=== PATIENT | female | born 1975 | race Caucasian/White ===

== ENCOUNTER 2024-01-21 19:13 | Emergency (ER) | payer OTHER, SELFPAY ==
--- NOTE | ~2024-01-21 | CT_ITS ---
CLINICAL INDICATION: Epigastric and suprapubic abdominal pain. COMPARISON: 01/05/2006. TECHNIQUE: An enhanced CT of the abdomen and pelvis was performed utilizing multislice spiral ThinkUp ue reconstructed at 5 mm slice thickness. Coronal and sagittal reconstructions were performed. This CT examination was performed utilizing dose reduction techniques. DLP: 661.5 mGy-cm FINDINGS/OBSERVATIONS: Visualized lower thorax:The bilateral lung bases are clear. The heart is of normal size, without pericardial effusion. Small hiatal hernia is present. Liver: The liver is not enlarged measuring 17 cm in longitudinal dimension. The liver enhances homoge neously. Gallbladder and biliary system: The gallbladder is only minimally distended, without calcified stones . Pancreas: The pancreas enhances homogeneously. Spleen: The spleen is not enlarged, and enhances homogeneously Kidneys: The bilateral kidneys enhance symmetrically without hydronephrosis or renal calculi. Adrenal glands: Unremarkable Gastrointestinal tract: Trace mural edema within the transverse colon without surrounding inflammator y change. Appendix:The air-filled appendix is of normal caliber (series 3, image 114). Vasculature: Unremarkable Lymph nodes: Scattered nonpathologically enlarged lymph nodes within the retroperitoneum and mesenter y. Pelvic structures:Uterus is markedly enlarged and heterogeneous. Within the anterior body of the uter us, to the left of midline is a mostly well-circumscribed area of mixed attenuation markedly distorti ng the endometrial canal. This abnormality measures 8.7 x 7.5 x 7.5 cm, nearly encompassing the entir ety of the body of the uterus. The bladder is distended, although receives mass effect from the enlarged uterus, but is otherwise un remarkable. Body wall and musculoskeletal: Small fat-containing umbilical hernia. Trace degenerative disease within the lumbosacral spine, at the level L5/S1 with osteophyte formation , disc space narrowing, endplate changes and vacuum phenomena. IMPRESSION: Markedly abnormal findings within the uterus (as detailed above) which may represent fibroid disease, for which ultrasound may be performed for better characterization. Reviewed, dictated and finalized at location A. IMPRESSION: Markedly abnormal findings within the uterus (as detailed above) which may repr esent fibroid disease, for which ultrasound may be performed for better charact erization.
[2024-01-21 19:28] VITALS: BP 155/100; PULSE 105; RESP 16; TEMP 36.7; O2SAT 100
--- NOTE | 2024-01-21 19:47 | ED.ABDPAIN ---
HPI - Abdominal Pain General Chief Complaint: Abdominal Pain Stated Complaint: abd pain, diarrhea Time Seen by Provider: 01/21/24 19:39 Source: patient Mode of arrival: ambulatory Limitations: no limitations History of Present Illness HPI narrative: This is a 48-year-old female, with history of narcolepsy and anxiety, who presents emergency department complaining of diarrhea for the past 5 days associated with abdominal pain. The patient denies any known sick contacts or recent travel. She denies eating any foul tasting foods or uncooked meals. She complains of cramping, 7/10 suprapubic and epigastric abdominal pain. Today, 1 episode of loose stools appeared dark and tarry. She denies bleeding elsewhere. She has no other complaints at this time. Related Data Allergies Allergy/AdvReac Type Severity Reaction Status Date / Time No Known Allergies Allergy Verified 01/21/24 19:15 Review of Systems Review of Systems: All systems reviewed & are unremarkable except as noted in HPI and below PMFSH Past Medical History Medical History Anxiety Surgical History Surgical History No significant past surgical history Social History Social History Smoking status: Current every day smoker Alcohol intake: current Drinks per week: 2 Substance use: never Exam Narrative: GENERAL: Well-developed, well-nourished, and in no acute distress. HEAD: Normocephalic, atraumatic. EYES: PERRLA and EOMI. no conjunctival pallor ENT: Nares clear, no rhinorrhea or epistaxis. Mucous membranes moist. Oropharynx without tonsillar hypertrophy exudate or other lesions. CHEST: Clear to auscultation. No respiratory distress. No wheezes rales or rhonchi HEART: Regular rate and rhythm. No murmur heard. Normal peripheral pulses. ABDOMEN: Soft, tender to palpation in the epigastrium and suprapubic region, without rebound or guarding, nondistended, normal active bowel sounds. no CVA tenderness EXTREMITIES: Normal range of motion. No edema. SKIN: Warm, dry, no rash. NEURO: Alert and oriented x3. No focal deficit. Moving all 4 limbs spontaneously PSYCH: Normal mood and affect. Course Course Emergency Course: 21:30 - CBC demonstrates mildly elevated white blood cell count of 12.4 and hemoglobin of 10.2 with unknown baseline. There are changes consistent with microcytic anemia. Chemistries unremarkable. UA unremarkable CT abdomen pelvis obtained. There is a large mass noted in the uterus. Radiology interpretation pending. 21:50 - CT abdomen pelvis demonstrates an 8.7 x 7.5 x 7.5 cm uterine fibroid, though is not concerning for any other acute organ injury, active bleeding or changes concerning for infection. The patient notes she has had an ultrasound approximately 1 year ago with her primary care doctor. She provides information on my chart showing an 8.4 x 5 x 7.5 cm fibroid. CBC 1 year ago demonstrated hemoglobin of 11.9. I suspect the patient's anemia is related to bleeding with the fibroid. The patient's heart rate has improved to the 80s with IV fluids. I suspect her symptoms are related to enteritis. Will discharge with recommendation for primary care and Gynecology follow-up. Will provide antiemetics and loperamide for symptomatic control. I discussed the findings and recommendations with the patient. Discussed return and emergency precautions including signs/symptoms of acute abdomen, bowel obstruction and intractable vomiting. The patient voiced understanding and agreement with the plan. All questions answered to her satisfaction. Vital Signs Vital signs: Vital Signs Temperature 98.1 F 01/21/24 19:28 Pulse Rate 105 H 01/21/24 19:28 Respiratory Rate 16 01/21/24 19:28 Blood Pressure 155/100 H 01/21/24 19:28 Pulse Oximetry 100 01/21/24 19:28 Oxygen
[2024-01-21] MEDS: ONDANSETRON INJ 4 MG/2 ML VIAL IV PUSH (20:01)
[2024-01-21] MEDS: SODIUM CHLORIDE 0.9% IV 1,000 ML 999 ML IV CONT (20:01)
[2024-01-21] MEDS: MORPHINE SULFATE (*CRX) 4 MG/ML INJ IV PUSH (20:01)
[2024-01-21 20:12] LABS: Basophils Absolute Auto 0.1 K/mm3 (0.0-0.1); Basophils Percent Auto 0.5 % (0.2-1.2); Eosinophils Absolute Auto 0.8 K/mm3 (0-0.3); Eosinophils Percent Auto 6.8 % (0-4.4); Hematocrit 33.5 % (37.0-47.0); Hemoglobin 10.2 g/dL (12.0-15.0); Immature Granulocyte Absolute 0.05 K/mm3 (0.00-0.031); Immature Granulocyte Percent A 0.4 % (0-0.5); Lymphocytes Absolute Auto 3.09 K/mm3 (0.9-3.2); Lymphocytes Percent Auto 24.9 % (18.3-44.2); Mean Corpuscular HGB Conc 30.4 g/dl (32-36); Mean Corpuscular Hemoglobin 22.9 pg (26-34); Mean Corpuscular Volume 75.1 fl (80-100); Mean Platelet Volume 9.7 fl (7.4-10.4); Monocytes Absolute Auto 1.1 K/mm3 (0.1-0.6); Monocytes Percent Auto 8.8 % (2.6-8.5); Neutrophils Absolute Auto 7.3 K/mm3 (1.3-6.7); Neutrophils Percent Auto 58.6 % (45.5-73.1); Platelet Count Result 593 k/mm3 (150-375); Red Blood Count 4.46 M/mm3 (4.2-5.4); Red Cell Distribution Width 18.6 % (11.5-14.5); White Blood Count 12.4 K/mm3 (4.5-10.0)
[2024-01-21 20:13] LABS: Add Urine Microscopic? NO; Appearance Urine Clear (Clear); Bilirubin Urine Negative (Negative); Blood Urine Negative (Negative); Color Urine Yellow (Yellow); Glucose Urine UA Negative (Negative); Ketones Urine Negative (Negative); Leukocyte Esterase Ur Negative LEU/UL (Negative); Nitrate Urine Negative (Negative); Protein Urine Negative (Negative); Specific Grav Ur 1.004 (1.001-1.035); Urobilinogen Urine 0.2 mg/dL (<2.0); pH Urine 6.5 (5.0-9.0)
[2024-01-21 20:21] LABS: Alanine Aminotransferase 29 U/L (6-35); Albumin Level 4.3 g/dL (3.5-5.1); Alkaline Phosphatase 103 U/L (38-126); Anion Gap 7 mmol/L (4-12); Aspartate Amino Transferase 31 U/L (14-36); Bilirubin,Total 0.2 mg/dL (0.2-1.3); Blood Urea Nitrogen 10 mg/dL (7-17); Calcium 8.7 mg/dL (8.4-10.2); Carbon Dioxide 27 mmol/L (22-30); Chloride 103 mmol/L (98-107); Estimated CRCL calculation 100 ml/min; Estimated Glomerular Filt Rate > 60; Glucose 105 mg/dL (65-110); Lipase 252 U/L (23-300); Potassium 3.7 mmol/L (3.4-5.0); Sodium 137 mmol/L (137-145)
[2024-01-21 20:23] LABS: INR 0.9; Partial Thromboplastin Time 26.2 Seconds (22.3-36.8)
[2024-01-21 20:29] LABS: BEDSIDEPREGUCG Negative (Negative)
[2024-01-21 22:20] VITALS: BP 115/80; PULSE 79; RESP 20; O2SAT 96
== END 2024-01-21 22:20 | disposition home or self-care (01) ==
PROVIDERS: Emergency Provider Preventive Medicine Aerospace Medicine
DX: R19.7 Diarrhea, unspecified (principal); D25.9 Leiomyoma of uterus, unspecified; R10.30 Lower abdominal pain, unspecified; F17.200 Nicotine dependence, unspecified, uncomplicated
CPT/HCPCS: 36415; 74177; 80053; 81003; 81025; 83690; 85025; 85610; 85730; 96361; 96374; 96375; 99284; J2270; J2405; J7030; Q9967

== ENCOUNTER 2024-02-29 00:30 | Day surgery (SDC) | payer OTHER, SELFPAY ==
--- NOTE | 2024-02-19 10:59 | SUR.PREOP ---
Report to the Outpatient Waiting Room, entrance under the green pavilion located off [facility], at time _0615_ on date _02/29/24_. Planned Procedure Time: _0815_.? Time changes happen often and if your time is changed the preop area will call you the afternoon before. - You and your visitor will be asked to self-screen and do not enter if you have any COVID symptoms. Please call surgeon if you need to reschedule. - A mask is optional within the hospital at this time. Patients may have clear liquids (water, carbonated beverages, clear teas, apple juice) until 3 hours (0515) prior to surgery with a maximum of 20 ounces. - No food from midnight until time of surgery and no smoking - Infants may have breast milk until 4 hours before surgery, formula 6 hours prior to surgery. - Children will be allowed to drink immediately following surgery.? If applicable, please bring a bottle or sippy cup to assist with drinking. Juice, water, soda, and popsicles are readily available.? For infants on formula, please bring formula the day of surgery.? Pacifiers are allowed. Take only the following medications with a SIP of water on the morning of surgery: _NA_ DO NOT STOP ANY OF YOUR OTHER PRESCRIPTION MEDICATIONS PRIOR TO SURGERY EXCEPT THE FOLLOWING Medications to discontinue per physician _Vitamin_ Date to take last dose_02/26/2024_ Please no make-up, nail maltese, hairspray, perfume, deodorant, or body powder the day of surgery.? No jewelry (including any body piercings) or valuables the day of surgery, leave them at home.? Please take a shower or bath the night before, or the morning of, surgery with an antibacterial soap.? Wear comfortable, loose fitting clothing.? Children are encouraged to wear pajamas. - Jewelry must be removed prior to entering the operating room.? Rings and piercings that are not removed may be cut off. - The hospital will not accept responsibility for valuables.? - Please leave all valuables, including medications, at home the day of surgery. If you are going home after surgery, a licensed driver utility worker must drive you home.? - NO public transportation without another adult if you receive anesthesia. - We recommend that an adult stay with you for 24 hours following discharge. - We also recommend that you do not drive, make important decision, drink alcoholic beverages, or take any drugs that were not prescribed by your health care provider for at least 24 hours after your discharge time. For Pediatric surgeries, we recommend two adults accompany the child home. Follow any additional instructions given to you from your surgeon. Telephone instructions given to _Keli_and asked if any additional questions and then verbalized understanding. Patient advised to call surgeon office or pre surgery nurse liaison [phone] if any additional questions.
[2024-02-19 11:20] VITALS: BMI 29.1
[2024-02-29 06:25] VITALS: BP 113/57; PULSE 91; RESP 18; TEMP 36.4; O2SAT 98
[2024-02-29] MEDS: ACETAMINOPHEN 500 MG TABLET 1000 MG PO (06:45)
[2024-02-29] MEDS: LACTATED RINGERS 1,000 ML 30 ML IV CONT (06:50)
--- NOTE | 2024-02-29 06:54 | P.PNAN_ITS ---
Anes - Initial Pre Proc Eval Procedure: Operation Date: 02/29/24 08:15 Proposed Procedures p Hysteroscopy Dilation and Curettage - Ewa Andrew MD Date/Time: 02/29/24 06:54 Surgeon: Ewa Andrew MD Pre Op Diagnosis: Menorrhagia Patient Data Age: 48 Gender: F Height: 1.65 m Weight: 79.38 kg Allergies Allergy/AdvReac Type Severity Reaction Status Date / Time No Known Allergies Allergy Verified 02/19/24 11:11 Home Medications Medication Instructions Recorded Confirmed Type armodafinil 150 mg tablet 150 mg PO PRN 02/19/24 02/19/24 History cetirizine 10 mg tablet 10 mg PO DAILY 02/19/24 02/19/24 History omeprazole 40 mg capsule,delayed 40 mg PO DAILY 02/19/24 02/19/24 History release ropinirole 0.5 mg tablet 0.5 mg PO DAILY 02/19/24 02/19/24 History venlafaxine 75 mg capsule,extended 75 mg PO DAILY 02/19/24 02/19/24 History release 24 hr Patient hx anesthesia problems: none Family hx anesthesia problems: none Results Review: All pre-operative results and documents have been reviewed as part of the pre- operative evaluation. [facility] Past Medical History Medical History (Updated 02/29/24 @ 06:54 by Sonny Jackson MD) Anxiety Obesity TOREY on CPAP Surgical History Surgical History No significant past surgical history Social History Social History Smoking packs per day: 1 Smoking cigarettes per day: 20.0 Years smoked: 15 Smoking pack-years: 15.00 Smoking status: Current every day smoker Tobacco type: cigarettes Second hand tobacco smoke exposure: Yes Alcohol intake: current Drinks per week: 1 Substance use: never Substance use type: does not use Living arrangements: with family Additional living arrangements comments: spouse Spiritual care concerns: No Anes - Eval Final PreProcedure Day of Procedure 02/29/24 06:54 Heart: regular rate and rhythm Lungs: clear to auscultation Airway: Mallampati scale class II Neurological: alert and oriented Last oral intake: >/= 8 hours ASA classification: III Emergent: no Anesthetic plan: proceed Anesthesia type and monitoring: general GIVS and standard monitoring Results Review: All pre-operative results and documents have been reviewed as part of the pre- operative evaluation. Informed Consent: The patient's anesthetic plan and its attendant risks and benefits were discussed with the patient/family/POA. Questions were solicited and answers provided to the satisfaction of the patient/family/POA.
--- NOTE | 2024-02-29 07:17 | P.HP_ITS ---
History of Present Illness History of Present Illness Consent: Risks, benefits, and alternatives have been discussed and questions answered. Patient agrees to proceed with procedure. Chief complaint: Menorrhagia Narrative: Keli Strange is a 48 year old female with heavy cycles worsening over the past 6. Patient with heavy but regular cycles lasting 7 days. Hemoglobin shows anemia at a 10.2. It was recommended to undergo D&C hysteroscopy. Patient wit h known history of fibroids. Risks of infection, bleeding perforation, and imbalance were discussed. Possible pathology was also discussed. Patient voices understanding and agrees to proceed. Review of Systems Review of Systems: not repeated day of surgery; patient states no changes in status PMFSH Past Medical History Medical History (Updated 02/29/24 @ 07:20 by Ewa Andrew MD) Anxiety Diabetes History of Graves' disease (normal spontaneous vaginal delivery) x2 Obesity TOREY on CPAP Surgical History Surgical History (Updated 02/29/24 @ 07:19 by Ewa Andrew MD) Status post functional endoscopic sinus surgery Status post tonsillectomy Social History Social History Smoking packs per day: 1 Smoking cigarettes per day: 20.0 Years smoked: 15 Smoking pack-years: 15.00 Smoking status: Current every day smoker Tobacco type: cigarettes Second hand tobacco smoke exposure: Yes Alcohol intake: current Drinks per week: 1 Substance use: never Substance use type: does not use Living arrangements: with family Additional living arrangements comments: spouse Spiritual care concerns: No Meds Home Medications and Allergies Home Medications Medication Instructions Recorded Confirmed Type armodafinil 150 mg tablet 150 mg PO PRN 02/19/24 02/19/24 History cetirizine 10 mg tablet 10 mg PO DAILY 02/19/24 02/19/24 History omeprazole 40 mg capsule,delayed 40 mg PO DAILY 02/19/24 02/19/24 History release ropinirole 0.5 mg tablet 0.5 mg PO DAILY 02/19/24 02/19/24 History venlafaxine 75 mg capsule,extended 75 mg PO DAILY 02/19/24 02/19/24 History release 24 hr Allergies Allergy/AdvReac Type Severity Reaction Status Date / Time No Known Allergies Allergy Verified 02/19/24 11:11 Exam Const: General: healthy appearing and alert Orientation/consciousness: patient oriented x3 Resp: Effort & Inspection: normal respiratory effort : External Female Exam: normal external appearance Speculum Exam - Vagina : normal appearance of the vagina and normal vaginal discharge Speculum Exam - Cervix: normal appearance of the cervix Bimanual exam- vagina & uterus: uterine size normal and consistency normal Bimanual Exam- Adnexa, other: normal adnexae and No adnexal tenderness Neuro: General: patient oriented x3 Assessment and Plan Assessment and plan (1) Menorrhagia: Code(s): N92.0 - Excessive and frequent menstruation with regular cycle Status: Acute Assessment and Plan: plan to proceed with D&C hysteroscopy
--- NOTE | 2024-02-29 07:17 | WPDHPUPDATE1 ---
History and Physical Update Update Date/Time: 02/29/24 07:17 History and Physical has been reviewed, including an updated exam of the patient. There are NO changes in the patient's condition. Risks, benefits, and alternatives have been discussed and questions answered. Patient agrees to proceed with procedure.
--- NOTE | 2024-02-29 08:23 | W.PM.PROC2 ---
Procedure Note - Detailed Date of Procedure 02/29/24 Pre-op Diagnosis Menorrhagia Post-op Diagnosis Same Procedure Performed D&C hysteroscopy Surgeon Ewa Andrew MD Anesthesia MAC Findings uterus is sounded to 8cm and appears grossly; the uterus is rotated with tubal openings at 12 and 6 Description of Procedure The patient is taken to the operating room and placed under anesthesia in the dorsal lithotomy position. She was prepped and draped usual sterile fashion. [place] speculum was placed in the vagina and the cervix grasped on the anterior lip with a tenaculum. The uterus is sounded to 8cm. Diagnostic hysteroscope was placed and with the above-stated findings the hysteroscope was removed. The sharp OO curette was used to curette the endometrium until a good uterine cry was noted in areas. All instruments are removed. Sponge, needle, and instrument counts are correct per the OR staff. Patient was taken to recovery in stable condition. Estimated Blood Loss 5 Drains No Packing No Pathology Yes ( Endometrial curettings) Complications No immediate complications Condition Stable Disposition PACU
[2024-02-29 08:25] VITALS: BP 94/41; PULSE 90; RESP 14; O2SAT 95
[2024-02-29 08:50] VITALS: BP 95/57; PULSE 74; RESP 14; O2SAT 96
[2024-02-29 09:15] VITALS: BP 117/51; PULSE 79; RESP 14
[2024-02-29 10:06] LABS: BEDSIDEPREGUCG Negative (Negative)
== END 2024-02-29 09:20 | disposition home or self-care (01) ==
PROVIDERS: PCP Physician Assistant; Visit Provider Obstetrics & Gynecology Gynecology
PROC: 0U5B8ZZ Destruction of Endometrium, Via Natural or Artificial Opening Endoscopic (ICD-10-PCS; CPT 58563; principal; 2024-02-29 08:15)
DX: N92.0 Excessive and frequent menstruation with regular cycle (principal); F41.9 Anxiety disorder, unspecified; G47.33 Obstructive sleep apnea (adult) (pediatric); E66.9 Obesity, unspecified; Z68.29 Body mass index [BMI] 29.0-29.9, adult; F17.210 Nicotine dependence, cigarettes, uncomplicated
CPT/HCPCS: 58558; 88305; A9270; J1100; J2003; J2250; J2405; J2704; J3010; J7120

== ENCOUNTER 2024-04-25 01:14 | Day surgery (SDC) | payer OTHER, SELFPAY ==
[2024-04-18 12:19] VITALS: BMI 28.6
--- NOTE | 2024-04-18 12:25 | PC.NURSE ---
Report to the Outpatient Waiting Room, entrance under the green pavilion located off [facility], at time __0600 on date __04/25/24 . Planned Procedure TiME. 0730 .? Time changes happen often and if your time is changed the preop area will call you the afternoon before. - You and your visitor will be asked to self-screen and do not enter if you have any COVID symptoms. Please call surgeon if you need to reschedule. - A mask is optional within the hospital at this time. Patients may have clear liquids (water, carbonated beverages, clear teas, apple juice) until 3 hours prior to surgery with a maximum of 20 ounces. - No food from midnight until time of surgery and no smoking. This includes no chewing gum, candy or mints. - Infants may have breast milk until 4 hours before surgery, formula 6 hours prior to surgery. - Children will be allowed to drink immediately following surgery.? If applicable, please bring a bottle or sippy cup to assist with drinking. Juice, water, soda, and popsicles are readily available.? For infants on formula, please bring formula the day of surgery.? Pacifiers are allowed. Take only the following medications with a SIP of water on the morning of surgery: NONE DO NOT STOP ANY OF YOUR OTHER PRESCRIPTION MEDICATIONS PRIOR TO SURGERY EXCEPT THE FOLLOWING Medications to discontinue per physician MTV Date to take last dose____04/22/24 Please no make-up, nail belarusian, hairspray, perfume, deodorant, or body powder the day of surgery.? No jewelry (including any body piercings) or valuables the day of surgery, leave them at home.? Please take a shower or bath the night before, or the morning of, surgery with an antibacterial soap.? Wear comfortable, loose fitting clothing.? Children are encouraged to wear pajamas. - Jewelry must be removed prior to entering the operating room.? Rings and piercings that are not removed may be cut off. - The hospital will not accept responsibility for valuables.? - Please leave all valuables, including medications, at home the day of surgery. If you are going home after surgery, a licensed solid waste truck driver must drive you home.? - NO public transportation without another adult if you receive anesthesia. - We recommend that an adult stay with you for 24 hours following discharge. - We also recommend that you do not drive, make important decision, drink alcoholic beverages, or take any drugs that were not prescribed by your health care provider for at least 24 hours after your discharge time. For Pediatric surgeries, we recommend two adults accompany the child home. Follow any additional instructions given to you from your surgeon. Telephone instructions given to _PATIENT_and asked if any additional questions and then verbalized understanding. Patient advised to call surgeon office or pre surgery nurse liaison [phone] if any additional questions.
[2024-04-25 07:00] VITALS: BP 136/66; PULSE 80; RESP 16; TEMP 36.3; O2SAT 99
[2024-04-25] MEDS: LACTATED RINGERS 1,000 ML 30 ML IV CONT (07:00)
[2024-04-25 07:13] LABS: BEDSIDEPREGUCG Negative (Negative)
[2024-04-25] MEDS: ACETAMINOPHEN 500 MG TABLET 1000 MG PO (07:13)
--- NOTE | 2024-04-25 07:14 | WPDHPUPDATE1 ---
History and Physical Update Update Date/Time: 04/25/24 07:14 History and Physical has been reviewed, including an updated exam of the patient. There are NO changes in the patient's condition. Risks, benefits, and alternatives have been discussed and questions answered. Patient agrees to proceed with procedure.
--- NOTE | 2024-04-25 07:14 | PM.HPGS ---
History of Present Illness History of Present Illness Consent: Risks, benefits, and alternatives have been discussed and questions answered. Patient agrees to proceed with procedure. Chief complaint: Menorrhagia Narrative: Keli Strange is a 48 year old female who has decided on a Kaycee endometrial ablation for menorrhagia. Risks of infection, bleeding, perforation, and failure are reviewed. Patient voices understanding and agrees to proceed. Review of Systems Review of Systems: not repeated day of surgery; patient states no changes in status PMFSH Past Medical History Medical History (Updated 02/29/24 @ 07:20 by Ewa Andrew MD) (normal spontaneous vaginal delivery) x2 History of Graves' disease Diabetes TOREY on CPAP Obesity Anxiety Surgical History Surgical History (Updated 04/25/24 @ 07:15 by Ewa Andrew MD) History of hysteroscopy Status post functional endoscopic sinus surgery Status post tonsillectomy Social History Social History Smoking packs per day: 1 Smoking cigarettes per day: 20.0 Years smoked: 10 Smoking pack-years: 10.00 Smoking status: Current every day smoker Tobacco type: cigarettes Second hand tobacco smoke exposure: Yes Alcohol intake: current Drinks per week: 4 Substance use: never Substance use type: does not use Living arrangements: with family Additional living arrangements comments: spouse Spiritual care concerns: No Meds Home Medications and Allergies Home Medications ?Medication ?Instructions ?Recorded ?Confirmed ?Type armodafinil 150 mg tablet 150 mg PO PRN 02/19/24 04/25/24 History cetirizine 10 mg tablet 10 mg PO DAILY 02/19/24 04/25/24 History omeprazole 40 mg capsule,delayed 40 mg PO DAILY 02/19/24 04/25/24 History release ropinirole 0.5 mg tablet 0.5 mg PO DAILY PRN restless leg(s) 02/19/24 04/25/24 History venlafaxine 75 mg capsule,extended 75 mg PO DAILY 02/19/24 04/25/24 History release 24 hr multivitamin (Daily Multi-Vitamin 1 tablet PO DAILY 04/18/24 04/25/24 History tablet) Allergies Allergy/AdvReac Type Severity Reaction Status Date / Time No Known Allergies Allergy Verified 04/25/24 07:06 Vital Signs Vital Signs - 24 hr 04/25/24 07:00 Temperature 97.4 F L Pulse Rate 80 Respiratory Rate 16 Blood Pressure 136/66 Pulse Oximetry 99 Oxygen Delivery Room Air Exam Const: General: healthy appearing and alert Orientation/consciousness: patient oriented x3 Resp: Effort & Inspection: normal respiratory effort GI: GI Palp: Yes Soft to palpation, No Tenderness to palpation present (GI) and No Palpable mass present : External Female Exam: normal external appearance Speculum Exam - Vagina: normal appearance of the vagina and normal vaginal discharge Speculum Exam - Cervix: normal appearance of the cervix Bimanual exam- vagina & uterus: uterine size normal and consistency normal Bimanual Exam- Adnexa, other: normal adnexae and No adnexal tenderness Neuro: General: patient oriented x3 Assessment and Plan Assessment and plan (1) Menorrhagia: Code(s): N92.0 - Excessive and frequent menstruation with regular cycle Status: Acute Assessment and Plan: Plan to proceed with Kaycee endometrial ablation
--- NOTE | 2024-04-25 08:21 | WPDANESEPPF ---
Anes - Initial Pre Proc Eval Procedure: Operation Date: 04/25/24 07:30 Proposed Procedures p Hysteroscopy with Kaycee Endometrial Ablation - Ewa Andrew MD Date/Time: 04/25/24 08:21 Surgeon: Ewa Andrew MD Pre Op Diagnosis: Menorrhagia Patient Data Age: 48 Gender: F Height: 1.65 m Weight: 81.6 kg Last Vital Signs Temp 97.4 F L 04/25/24 07:00 Pulse 80 04/25/24 07:00 Resp 16 04/25/24 07:00 BP 136/66 04/25/24 07:00 Pulse Ox 99 04/25/24 07:00 O2 Del Method Room Air 04/25/24 07:00 Allergies Allergy/AdvReac Type Severity Reaction Status Date / Time No Known Allergies Allergy Verified 04/25/24 07:06 Home Medications ?Medication ?Instructions ?Recorded ?Confirmed ?Type armodafinil 150 mg tablet 150 mg PO PRN 02/19/24 04/25/24 History cetirizine 10 mg tablet 10 mg PO DAILY 02/19/24 04/25/24 History omeprazole 40 mg capsule,delayed 40 mg PO DAILY 02/19/24 04/25/24 History release ropinirole 0.5 mg tablet 0.5 mg PO DAILY PRN restless leg(s) 02/19/24 04/25/24 History venlafaxine 75 mg capsule,extended 75 mg PO DAILY 02/19/24 04/25/24 History release 24 hr multivitamin (Daily Multi-Vitamin 1 tablet PO DAILY 04/18/24 04/25/24 History tablet) Laboratory Tests 04/25/24 07:00 POC Urine HCG, Qual Negative (Negative) Patient hx anesthesia problems: none Family hx anesthesia problems: none Results Review: All pre-operative results and documents have been reviewed as part of the pre-operative evaluation. [facility] Past Medical History Medical History (normal spontaneous vaginal delivery) x2 History of Graves' disease Diabetes TOREY on CPAP Obesity Anxiety Surgical History Surgical History History of hysteroscopy Status post functional endoscopic sinus surgery Status post tonsillectomy Social History Social History Smoking packs per day: 1 Smoking cigarettes per day: 20.0 Years smoked: 10 Smoking pack-years: 10.00 Smoking status: Current every day smoker Tobacco type: cigarettes Second hand tobacco smoke exposure: Yes Alcohol intake: current Drinks per week: 4 Substance use: never Substance use type: does not use Living arrangements: with family Additional living arrangements comments: spouse Spiritual care concerns: No Anes - Eval Final PreProcedure Day of Procedure 04/25/24 08:21 Patient weight: obese Heart: regular rate and rhythm Lungs: clear to auscultation Airway: Mallampati scale class II Neurological: alert and oriented Last oral intake: >/= 8 hours ASA classification: III Emergent: no Anesthetic plan: proceed Anesthesia type and monitoring: general GIVS and standard monitoring Results Review: All pre-operative results and documents have been reviewed as part of the pre-operative evaluation. TOREY on CPAP, setting 18, smoker 1 ppd for 10 years. Informed Consent: The patient's anesthetic plan and its attendant risks and benefits were discussed with the patient/family/POA. Questions were solicited and answers provided to the satisfaction of the patient/family/POA.
[2024-04-25] MEDS: LIDOCAINE 1% LOCAL INJ 10 ML VIAL INFILTRATE (08:34)
[2024-04-25] MEDS: KETOROLAC 30 MG/ML VIAL (*BKC) IV PUSH (08:40)
--- NOTE | 2024-04-25 08:45 | W.PM.PROC2 ---
Procedure Note - Detailed Date of Procedure 04/25/24 Pre-op Diagnosis Menorrhagia Post-op Diagnosis Same Procedure Performed Kaycee endometrial ablation with hysteroscopy Surgeon Ewa Andrew MD Anesthesia MAC and Local Findings Uterus sounds to 10cm and is anteverted. The uterus is rotated 180? and the tubal ostia are at 6 and 12:00 p.m.. Endometrium appears grossly normal. Description of Procedure The patient was taken to the operating room and placed under anesthesia in the dorsal lithotomy position. She was prepped and draped in the usual sterile fashion. Del Valle speculum was placed in the vagina and the cervix grasped on the anterior lip with a tenaculum. The cervix was injected with 1% lidocaine in each quadrant. The uterus is sounded to 10cm. The diagnostic hysteroscope was placed with the above-stated findings. The cervix was then serially dilated with Hegar to an 8. The Kaycee device is opened and placed with the arms pointing at 6 and 12. The cavity assessment passed on the 1st attempt and the treatment cycle lasted the full 2minutes. Device was then removed and the hysteroscope replaced with good ablation effect noted. All instruments are removed. Sponge, needle, and instrument counts are correct per the OR staff. Patient was awakened from anesthesia and taken to recovery in stable condition. Estimated Blood Loss 5 Drains No Packing No Pathology None sent Complications No immediate complications Condition Stable Disposition PACU
[2024-04-25 08:48] VITALS: BP 117/76; PULSE 80; RESP 16; O2SAT 98
[2024-04-25 09:20] VITALS: BP 115/65; PULSE 70; RESP 16
[2024-04-25 09:48] VITALS: BP 140/88; PULSE 73; RESP 16
== END 2024-04-25 09:56 | disposition home or self-care (01) ==
PROVIDERS: PCP Physician Assistant; Visit Provider Obstetrics & Gynecology Gynecology
PROC: 0U5B8ZZ Destruction of Endometrium, Via Natural or Artificial Opening Endoscopic (ICD-10-PCS; CPT 58563; principal; 2024-04-25 07:30)
DX: N92.0 Excessive and frequent menstruation with regular cycle (principal); E11.9 Type 2 diabetes mellitus without complications; F41.9 Anxiety disorder, unspecified; G47.33 Obstructive sleep apnea (adult) (pediatric); E05.00 Thyrotoxicosis with diffuse goiter without thyrotoxic crisis or storm; F17.210 Nicotine dependence, cigarettes, uncomplicated; E66.9 Obesity, unspecified; Z68.29 Body mass index [BMI] 29.0-29.9, adult; Z99.89 Dependence on other enabling machines and devices; Z98.890 Other specified postprocedural states
CPT/HCPCS: 58563; A9270; J1100; J1885; J2003; J2250; J2405; J2704; J3010; J7120